=== PATIENT | male | born 1960 | race Caucasian/White ===

== ENCOUNTER 2017-05-14 07:53 | Day surgery (SDC) | payer OTHER ==
[~2017-05-14] VITALS: Ht 167.6 cm; Wt 84.4 kg
[2017-05-14 08:29] VITALS: BP 164/69
[2017-05-14 14:14] VITALS: BP 118/66
== END 2017-05-14 14:05 | disposition home or self-care (01) ==
LOC: DS 07:53 → OR 10:30 → DS 10:30
PROVIDERS: Neuromusculoskeletal Medicine, Sports Medicine
PROC: 0PBG0ZZ Excision of Left Humeral Shaft, Open Approach (ICD-10-PCS; principal; 2017-05-14 10:30)
DX: M77.12 Lateral epicondylitis, left elbow (principal)
CPT/HCPCS: J0690; J2250; J2270; J2405; J3010; J3490; J7120